=== PATIENT | male | born 1965 | race African-American/Black ===

== ENCOUNTER 2016-08-25 10:43 | Emergency (ER) | payer OTHER ==
[~2016-08-25] VITALS: Ht 172.7 cm; Wt 80.0 kg
[2016-08-25 10:45] VITALS: BP 119/68
== END 2016-08-25 15:00 | disposition home or self-care (01) ==
LOC: ER 10:43
DX: K64.4 Residual hemorrhoidal skin tags (principal); K59.00 Constipation, unspecified; I10 Essential (primary) hypertension
CPT/HCPCS: 99283